=== PATIENT | female | born 1970 | race Caucasian/White ===

== ENCOUNTER 2017-05-13 07:36 | Day surgery (SDC) | payer OTHER ==
[~2017-05-13] VITALS: Ht 154.9 cm; Wt 60.7 kg
[2017-05-13] VITALS (7 sets, daily range): BP systolic 118–142; BP diastolic 67–83
[~2017-05-13 07:36] MED LIST: CALCIUM 500 MG1 EACH PO; CYANOCOBALAM1000 MCG PO; DAILY VALUE1 EACH PO; LORAZEPAM0.5 MG PO; MICRONOR0.35 MG PO; NEURONTIN300 MG PO; PARAGARD T 3801 EAC1 IY; PERCOCET 5/31 TABLET PO; ROXICODONE5 MG PO; SYNTHROID100 MCG PO; TAMOXIFEN CITRA20 MG PO; TYLENOL EXTRA500 MG PO; VITAMIN D31000 UNI2 PO; ZOFRAN4 MG PO
[2017-05-13 08:43] LABS: POINT-OF-CARE METER ID UU14174212
[2017-05-13 12:10] LABS: POINT-OF-CARE METER ID UU13113675; POINT-OF-CARE USER ID 515036437
[2017-05-14 03:58] VITALS: BP 106/68
[2017-05-14 07:03] LABS: EOSINOPHIL (%) 0.2 % (0-5); HEMATOCRIT 33.7 % (36.0-46.0); IMMATURE GRANULOCYTE (%) 0.3 % (0.0-0.7); LYMPHOCYTE COUNT 2.3 K/uL (1.0-2.8); MCH 30.9 PG (29.0-34.0); MCHC 33.5 G/DL (30.0-36.0); MCV 92.1 FL (83-99); MEAN PLAT.VOLUME 9.1 uM^3 (9.5-12.4); MONOCYTE (%) 6.9 % (3-12); MONOCYTE COUNT 0.8 K/uL (0-0.8); NEUTROPHIL (%) 73.8 % (45-76); PLATELET COUNT 237 K/uL (156-360); RBC DIS.WIDTH-CV 12.4 % (11.8-14.6); RBC DIS.WIDTH-SD 42.1 % (39-53); RED BLOOD COUNT 3.66 M/uL (3.80-5.20); WHITE BLOOD COUNT 12.2 K/uL (4.1-10.2)
[2017-05-14 07:05] VITALS: BP 123/68
[2017-05-14 08:24] LABS: ANION GAP 8 MEQ/L (2-14); CHLORIDE 111 MEQ/L (99-109); GFR ESTIMATE (CALCULATED) > 59 mL/min/; GLUCOSE 96 mg/dL (70-99); POTASSIUM 4.4 MEQ/L (3.7-5.4); SAMPLE HEMOLYSIS CHECK 0; SAMPLE ICTERIC CHECK 0; SAMPLE LIPEMIA CHECK 0; SODIUM 143 MEQ/L (136-147); UREA NITROGEN (BUN) 7 mg/dL (9-23)
[2017-05-14 10:40] VITALS: BP 107/66
== END 2017-05-14 11:59 | disposition home or self-care (01) ==
LOC: SDC 07:36 → 2SOUTH 11:43 → 2EAST 11:43 → ENRESERV 11:54 → SDC 11:58 → ENRESERV 17:38 → 2EAST 19:36
PROVIDERS: Obstetrics & Gynecology Gynecology
DX: D25.9 Leiomyoma of uterus, unspecified (principal); N80.0 Endometriosis of uterus; C50.912 Malignant neoplasm of unspecified site of left female breast; C77.3 Secondary and unspecified malignant neoplasm of axilla and upper limb lymph nodes; E06.3 Autoimmune thyroiditis; Z87.891 Personal history of nicotine dependence; E04.2 Nontoxic multinodular goiter; Z15.01 Genetic susceptibility to malignant neoplasm of breast; N72 Inflammatory disease of cervix uteri; Z92.21 Personal history of antineoplastic chemotherapy
CPT/HCPCS: 36415; 80048; 80053; 82948; 84702; 85025; 86850; 86900; 86901; 87086; 88307; G0378; J0690; J1100; J1170; J1644; J1885; J2001; J2250; J2270; J2405; J2710; J2795; J3010; J3475; J7120; Q0175

== ENCOUNTER → 2017-07-11 | Outpatient (CLI) | payer OTHER | END | disposition home or self-care (01) | LOC: RAD 07-10 10:00 | PROC: 0G9G3ZX Drainage of Left Thyroid Gland Lobe, Percutaneous Approach, Diagnostic (ICD-10-PCS; principal; 2017-07-11) | DX: C73 Malignant neoplasm of thyroid gland (principal) | CPT/HCPCS: 76942; 88173 ==

== ENCOUNTER → 2017-11-07 | Outpatient (CLI) | payer BC | END | disposition home or self-care (01) | LOC: AMB 12:17 | DX: Z45.2 Encounter for adjustment and management of vascular access device (principal); I87.8 Other specified disorders of veins; Z92.21 Personal history of antineoplastic chemotherapy ==